=== PATIENT | male | born 1955 | race Caucasian/White ===

== ENCOUNTER 2024-01-17 21:59 | Emergency (ER) | payer MEDICARE, OTHER, SELFPAY ==
[2024-01-17 21:59] VITALS: BMI 42.1
[2024-01-17 22:05] VITALS: BP 137/84
--- NOTE | 2024-01-18 00:06 | ED.GENMED ---
History of Present Illness
General
Chief Complaint: DVT/Possible Blood Clot
Source: patient
Time Seen by Provider: 01/18/24 00:06
Nursing documentation reviewed up to this point in time: agreed with
History of Present Illness
History of Present Illness:
69-year-old male presents with right calf pain. He did have a total knee replacement recently. Was told by his physician to come into the emergency department for evaluation. Denies any recent injury other than the surgery.
Past History
Past History
ED Past Medical History: HTN, Psychiatric (anxiety) and Other (obesity)
ED Past Surgical History: Other (FESS)
Social History
Tobacco: Former smoker
Review of Systems
Review of Systems
Allergies reviewed?: Yes
Other source history: family
All Other Systems: ROS reviewed and negative except as documented in HPI and ROS
Constitutional: Reports no symptoms
EENT: Reports no symptoms
Respiratory: Reports no symptoms
Cardiac: Reports no symptoms
ABD/GI: Reports no symptoms
: Reports no symptoms
Musculoskeletal: Reports muscle pain and muscle stiffness
Skin: Reports no symptoms
Neurological: Reports no symptoms
Endocrine: Reports no symptoms
Hematologic/Lymphatic: Reports no symptoms
Psychiatric: Reports no symptoms
Phy Exam
General Physical Exam
General Presentation: well appearing and no apparent distress
General Skin: warm and dry
General Habitus: normal
General Mental: alert
General Hydration: appears well hydrated
ENT Exam
ENT Exam: EOMI, pharynx normal, neck supple and normocephalic
Eye Exam
Eye Exam: PERRL, cornea clear and conjunctiva normal
Cardiovascular Exam
Cardiovascular Exam: regular rate/rhythm, no edema, no murmur and normal peripheral pulses
Pulmonary Exam
Pulmonary Exam: lungs clear, no respiratory distress, no rales, no crackles, no rhonchi, no stridor, no wheezing and no cough
Gastrointestinal Exam
Gastrointestinal Exam: normal bowel sounds, non tender, soft, no organomegaly, no pulsatile mass and non distended
Neurological Exam
Neurological Exam: alert, oriented x3, no motor deficits and speech normal
Musculoskeletal Exam
Musculoskeletal Exam: edema (Right calf tenderness.), neuro vasc intact and other (Right knee replacement surgical scar that is in the process of healing. No warmth or dehiscence noted in the [facility].)
Skin Exam
Skin Exam: normal color, warm/dry, no rash and no petechia
Psychiatric Exam
Psychiatric Exam: normal mood/affect
Course
Orders/Labs/Results
Orders:
Orders
01/17/24 22:11
US Legs, Right [US Periph Venous LOWER Ext RT] Urgent
Comment:
Reason For Exam: r/o dvt
01/18/24 01:19
Rivaroxaban [Xarelto] 15 mg PO NOW STA
Vital Signs
Initial and Last Documented VS:
Initial Vital Signs
Temp Pulse Resp BP Pulse Ox
98.9 F 80 20 137/84 97
01/17/24 22:05 01/17/24 22:05 01/17/24 22:05 01/17/24 22:05 01/17/24 22:05
Last Documented Vital Signs
Temp Pulse Resp BP Pulse Ox
98.9 F 80 20 136/72 95
01/17/24 22:05 01/17/24 22:05 01/17/24 22:05 01/18/24 02:15 01/18/24 02:16
*Critical Care Note
Total Time (30-74mins, 75-104mins- exclusive of procedures): Not Applicable
Update Note
Update Note:
Duplex venous ultrasound right lower extremity
IMPRESSION:
Exam positive for DVT
Occlusive thrombus within the peroneal vein
Remainder of interrogated deep veins right lower extremity are patent and compressible
For comparison the left common femoral vein is patent and compressible
ED Attending Note
-
Portions of this chart may have been created with voice recognition software.� Occasional wrong word or��sound alike� substitutions may have occurred due to the inherent limitations of voice recognition software.
Discharge Plan
Departure
Patient Disposition: Home (Routine Discharge)
Date of Disposition: 01/18/24
Time of Disposition: 01:53
Patient with high blood pressure during this ER visit?: Yes
Discharge Problem:
DVT (deep venous thrombosis)
Instructions: Deep Vein Thrombosis (Blood Clots in the Legs) (DC), BLOOD PRESSURE
Prescriptions:
New
rivaroxaban 15 mg tablet
15 mg PO DAILY Qty: 30 0RF
Rx Instructions:
15mg po BID with FOOD for first 21 days. After 21 days, start 20mg po DAILY with FOOD
No Action
amlodipine 10 MG tablet
10 mg PO QPM
valsartan [Diovan] 320 MG tablet
320 mg PO QPM
brimonidine 1 DROP drops
1 drp RIGHT EYE DAILY
dorzolamide-timolol 1 DROP drops
1 drp LEFT EYE DAILY
lorazepam 1 MG tablet
1 mg PO Q8HPRN PRN (Reason: anxiety)
olopatadine [Pataday Once Daily Relief] 2.5 ML drops
2.5 ml OP PRN PRN (Reason: as needed)
Z Drop
1 drp RIGHT EYE DAILY
tamsulosin 0.4 mg Capsule
0.4 mg PO DAILY
Referrals:
Michael Landry DO [Active] - Call in 1-3 days for appt
Activity Restrictions/Additional Instructions:
Your prescriptions were sent electronically to the pharmacy that you specified.
It was a pleasure meeting you and taking part in your care. We hope for your continued healing and wellness.
Please read discharge instructions in their entirety. However, they are for general education and may not describe your exact diagnosis at discharge. Information on your ER visit and medical conditions were discussed with you along with appropriate
follow up information...
If indicated, please take your medications as instructed and indicated on discharge paperwork.
Please schedule a follow up appointment as directed. Call to schedule an appointment
Please return to the emergency department with ANY change in, persisting, or worsening of symptoms. If any of your symptoms do not improve, or persist, or become more severe within 6-12 hours, please return to the emergency department for further
care.
Please return to the emergency department if you develop a headache, neck pain/stiffness, fever greater than 100.4F, chest pain, shortness of breath, persistent nausea, vomiting, slurred speech, difficulty walking, numbness/tingling, weakness, signs
of infection or any other symptoms that are worrisome to you.
If you have any questions or concerns please do not hesitate to call the Hospital at or E-mail me directly at [email or web address]
Interventions
Interventions:
*Risk Screen - Suicide Last Done: 01/18/24 00:41
*General Assessment Last Done: 01/17/24 22:05
*Neglect/Abuse Screening Last Done: 01/18/24 00:41
ED- Fall Risk Assessment Last Done: 01/18/24 02:38
*ED COVID-19 Vaccine History Last Done: 01/18/24 00:39
*Nursing Disposition Last Done: 01/18/24 02:38
ED- Cardiac Assessment Last Done: 01/18/24 00:39
ED- Pulmonary Assessment Last Done: 01/18/24 00:39
ED-Peripheral Vascular Assessment Last Done: 01/18/24 00:39
ED-Skin Assessment Last Done: 01/18/24 00:39
Discharge Date and Time
Discharge Date/Time: 01/18/24 02:39
Print Language: SETSWANA
[2024-01-18 00:39] VITALS: BP 124/69
[2024-01-18 01:00] VITALS: BP 132/82
[2024-01-18] MEDS: XARELTO 15 MG PO (01:50)
[2024-01-18 02:15] VITALS: BP 136/72
--- NOTE | 2024-01-19 10:24 | CM ---
TC from patients spouse re concerns for Xarelto script.
[Per Spouse patient was unable to get RX filled for the month, her pharmacy provided an 8 day supply.
Patient payed out of pocket for script $165.
patient did not receive coupon for Xarelto prior to d/c.
CM spoke with [email or web address] and the coupon is good for 1x/lifetime and [employer]- program will guarantee no costs greater than $89.
patient can also call [employer] to enroll with a live rep.
Spouse updated and coupon and pamphlet left at ED check in for spouse to pick up driver today.
Per spouse they will be seeing their MD tomorrow for medication orders.
== END 2024-01-18 02:39 | disposition home or self-care (01) ==
LOC: EMR 21:59
PROVIDERS: EMERGENCY PHYSICIAN Student in an Organized Health Care Education/Training Program; FAMILY PHYSICIAN Family Medicine
DX: M79.661 Pain in right lower leg (principal); I82.451 Acute embolism and thrombosis of right peroneal vein; I10 Essential (primary) hypertension; E66.9 Obesity, unspecified; F41.9 Anxiety disorder, unspecified; Z96.651 Presence of right artificial knee joint; Z98.890 Other specified postprocedural states; Z87.891 Personal history of nicotine dependence
CPT/HCPCS: 99284; 93971

== ENCOUNTER → 2024-05-04 08:29 | Outpatient (REF) | payer MEDICARE, OTHER, SELFPAY | LOC: RAD 08:29 | PROVIDERS: ATTENDING PHYSICIAN Orthopaedic Surgery; FAMILY PHYSICIAN Student in an Organized Health Care Education/Training Program | DX: Z96.659 Presence of unspecified artificial knee joint (principal); I82.451 Acute embolism and thrombosis of right peroneal vein | CPT/HCPCS: 93970 ==